=== PATIENT | male | born 1975 | race Caucasian/White ===

== ENCOUNTER 2018-02-28 10:21 | Emergency (ER) | payer OTHER, BC ==
[2018-02-28] MEDS ORDERED: BUFFERED LIDOCAINE 10 ML SYRINGE ONE (11:36)
[2018-02-28] MEDS ORDERED: BUFFERED LIDOCAINE 10 ML SYRINGE SUBQ STA (11:40)
--- NOTE | 2018-02-28 11:43 | ED Physician Documentation ---
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 denies: Focal weakness, Numbness PD PAST MEDICAL HISTORY - Past Medical History Past Medical History: No - Present Medications Home Medications: Ambulatory Orders Medication Instructions Recorded Confirmed No Known Home Medications [No 02/28/18 02/28/18 Known Home Medications] - Allergies Allergies/Adverse Reactions: Allergies Allergy/AdvReac Type Severity Reaction Status Date / Time No Known Drug Allergies Allergy Verified 02/28/18 10:36 - Social History Does the pt smoke?: No Smoking Status: Never smoker PD ED PE NORMAL - Vitals Vital signs reviewed: Yes - HEENT HEENT: PERRL, Dentition benign (not chpped or loose nl bite, lip lac lower lip mildine from sasha border over top to mucosal side) - Neck Neck: No bony TTP - Cardiac Cardiac: RRR - Respiratory Respiratory: No respiratory distress, Clear bilaterally - Neuro Neuro: Alert and oriented X 3 Eye Opening: Spontaneous Motor: Obeys Commands Verbal: Oriented GCS Score: 15 Results - Vitals Vitals: Vital Signs - 24 hr 02/28/18 10:33 Temperature 36.6 C Heart Rate 76 Respiratory 18 Rate Blood Pressure 135/86 H O2 Saturation 99 Oxygen O2 Source Room air Procedures - Laceration (location) lip Length in cm: 2 Wound type: Irregular Neurovascular status: Sensory intact, Motor intact Anesthesia: Lidocaine 1% Wound Preparation: Irrigated copiously NS (by [employer]) Skin layer closure: Nylon (1 6-0 suture), Prolene (4 6-0 sutures) Other: Patient tolerated well, No complications, Neurovascular intact, Tetanus booster given, Other Complexity: Simple PD MEDICAL DECISION MAKING - Sepsis Event Vital Signs: Vital Signs - 24 hr 02/28/18 10:33 Temperature 36.6 C Heart Rate 76 Respiratory 18 Rate Blood Pressure 135/86 H O2 Saturation 99 Oxygen O2 Source Room air Departure - Departure Disposition: 01 Home, Self Care Clinical Impression: Lip laceration Qualifiers: Encounter type: initial encounter Qualified Code(s): S01.511A - Laceration without foreign body of lip, initial encounter Condition: Good Instructions: ED Laceration Face Sutr Tape Ch Comments: 4 of the sutures are absorbable and do not need to be removed The final suture at the border of the skin and the lip is non absorbable and should be removed in 7 days Apply ice for 5-10 minutes every hour until bed time to keep the swelling down and prevent the wound form splitting. Also using vaseline or something similar to kep the lip from cracking will help This wound is low risk for infection and we irrigated it out very well to prevent infection - but despite good wound care some lacerations get infected - of you notice redness drainage or excessive swelling or drainage please come back to the ER for a recheck Forms: Activity restrictions
[2018-02-28] MEDS ORDERED: TETANUS/DIPHTHERIA/PERTUSSIS 0.5 ML SYRINGE IM ONE (12:02)
[2018-02-28 12:50] VITALS: BP 139/93
== END 2018-02-28 13:00 | disposition home or self-care (01) ==
LOC: ED 10:21
DX: S01.511A Laceration without foreign body of lip, initial encounter (principal); V69.9XXA Occupant (driver) (passenger) of heavy transport vehicle injured in unspecified traffic accident, initial encounter
CPT/HCPCS: 12011; 90471; 99283

== ENCOUNTER 2018-03-07 14:16 | Emergency (ER) | payer OTHER, BC ==
[2018-03-07 14:32] VITALS: BP 118/65
--- NOTE | 2018-03-07 14:42 | ED Physician Documentation ---
PD HPI WOUND RECHECK - Stated complaint Stated Complaint: STICHES REMOVAL - Chief complaint Chief Complaint: Wound - Histroy obtained from History obtained from: Patient - History of Present Illness Location: Face (He is 7 days out from a suturing left lower lip and here for suture removal) Review of Systems Constitutional: denies: Fever, Chills Ears: denies: Loss of hearing, Ear pain Nose: denies: Rhinorrhea / runny nose, Congestion PD PAST MEDICAL HISTORY - Present Medications Home Medications: Ambulatory Orders Medication Instructions Recorded Confirmed No Known Home Medications [No 02/28/18 02/28/18 Known Home Medications] - Allergies Allergies/Adverse Reactions: Allergies Allergy/AdvReac Type Severity Reaction Status Date / Time No Known Drug Allergies Allergy Verified 02/28/18 10:36 - Social History Does the pt smoke?: No Smoking Status: Never smoker PD ED PE NORMAL - Vitals Vital signs reviewed: Yes - General General: Alert and oriented X 3, No acute distress - HEENT HEENT: Other (Healing laceration left lower lip, there is a single 6-0 nylon stitch in the vermilion border that was removed during evaluation without issue. ) - Neuro Neuro: Alert and oriented X 3, Normal speech Results - Vitals Vitals: Vital Signs - 24 hr 03/07/18 14:22 Temperature 36.5 C Heart Rate 83 Respiratory 16 Rate Blood Pressure 118/65 O2 Saturation 98 Oxygen O2 Source Room air PD MEDICAL DECISION MAKING - Sepsis Event Vital Signs: Vital Signs - 24 hr 03/07/18 14:22 Temperature 36.5 C Heart Rate 83 Respiratory 16 Rate Blood Pressure 118/65 O2 Saturation 98 Oxygen O2 Source Room air Departure - Departure Disposition: 01 Home, Self Care Clinical Impression: Visit for suture removal Lip laceration Qualifiers: Encounter type: initial encounter Qualified Code(s): S01.511A - Laceration without foreign body of lip, initial encounter Condition: Good Record reviewed to determine appropriate education?: Yes Instructions: ED Wound Check Sutr Remove No Infec
== END 2018-03-07 14:45 | disposition home or self-care (01) ==
LOC: ED 14:16
DX: Z48.02 Encounter for removal of sutures (principal); S01.511D Laceration without foreign body of lip, subsequent encounter
CPT/HCPCS: 99282